=== PATIENT | female | born 1955 | race American Indian/Alaskan Native ===

== ENCOUNTER 2016-11-18 16:43 | Emergency (ER) | payer SELFPAY ==
[2016-11-18] MEDS ORDERED: APRESOLINE ONE (16:50)
[2016-11-18] MEDS: APRESOLINE IV PRN ×3 (16:51→17:47)
--- NOTE | 2016-11-18 17:35 | Cat Scan Report ---
FINAL REPORT PROCEDURE: CT HEAD/BRAIN WO CON TECHNIQUE: Computerized tomography of the head was performed without contrast material. HISTORY: head pain COMPARISON: No prior studies are available for comparison. FINDINGS: Visualized portions of the paranasal sinuses and mastoid air cells are clear. No calvarial fracture is seen. Acute subarachnoid hemorrhage is seen in the [place] possibly due to ruptured aneurysm. Blood is seen in the 4th ventricle which is effaced and there is mild hydrocephalus. Minimal chronic small vessel ischemic changes are seen. Sulci remain visible. IMPRESSION: Diffuse subarachnoid hemorrhage is seen in the [place] and extending into the foramen magnum with effacement of the 4th ventricle. Mild hydrocephalus is seen. Ruptured aneurysm is the most likely etiology for the appearance. Critical results were discussed with the Kt Weathers at 5:30 p.m. Eastern time on November 18, 2016.
[2016-11-18 17:40] LABS: Basophils % (Auto) 0.8 % (0.0-1.8); Hematocrit 38.4 % (30.3-42.9); Hemoglobin 12.7 gm/dl (10.1-14.3); Mean Corpuscular HGB Conc 33 % (30-34); Mean Corpuscular Hemoglobin 30 pg (28-32); Mean Corpuscular Volume 91 fl (79-97); Platelet Count 212 K/mm3 (140-440); Red Blood Count 4.22 M/mm3 (3.65-5.03); Red Cell Distribution Width 14.1 % (13.2-15.2); White Blood Count 10.7 K/mm3 (4.5-11.0)
--- NOTE | 2016-11-18 17:46 | Emergency Department Report ---
HPI - General Chief Complaint: Headache Time Seen by Provider: 11/18/16 17:00 - HPI HPI: This is a 61-year-old Afro-[place] female presents to the emergency department by EMS from work with complaint of a severe posterior headache that started around 4 PM this afternoon. She is not taken anything for symptoms prior to presentation. She presents with very elevated blood pressure. The patient says she has not seen a physician as a primary care doctor in about 25 years and therefore has no diagnosed medical conditions and is not on any medications. She denies any slurred speech, vision change, chest pain or any neurological deficits. ED Past Medical Hx - Past Medical History Previous Medical History?: No - Surgical History Past Surgical History?: No - Social History Smoking Status: Current Every Day Smoker Substance Use Type: Alcohol - Medications Home Medications: Home Medications Medication Instructions Recorded Confirmed Last Taken Type No Known Home Medications [No 11/18/16 11/18/16 Unknown History Reported Home Medications] ED Review of Systems ROS: Stated complaint: HIGH BLOOD PRESSURE Other details as noted in HPI Comment: All other systems reviewed and negative Constitutional: denies: chills, fever Eyes: denies: eye pain, eye discharge, vision change ENT: denies: ear pain, throat pain Respiratory: denies: cough, shortness of breath, wheezing Cardiovascular: denies: chest pain, palpitations Gastrointestinal: denies: abdominal pain, nausea, diarrhea Genitourinary: denies: urgency, dysuria, discharge Musculoskeletal: denies: back pain, joint swelling, arthralgia Skin: denies: rash, lesions Neurological: headache. denies: weakness, numbness Physical Exam - Physical Exam Vital Signs: Vital Signs 11/18/16 11/18/16 11/18/16 16:45 16:50 16:51 Temperature 98 F Pulse Rate 71 69 68 Respiratory 29 H 31 H Rate Blood Pressure 212/96 Blood Pressure 204/97 [Left] O2 Sat by Pulse 100 Oximetry 11/18/16 11/18/16 11/18/16 17:07 17:15 17:16 Temperature Pulse Rate 67 Respiratory 20 Rate Blood Pressure 191/85 191/85 Blood Pressure [Left] O2 Sat by Pulse 98 100 Oximetry Physical Exam: GENERAL: The patient is well-developed well-nourished. HEENT: Normocephalic. Atraumatic. Extraocular motions are intact. Patient has moist mucous membranes. Pupils equal reactive to light bilaterally. NECK: Supple. Trachea is midline. CHEST/LUNGS: Clear to auscultation. There is no respiratory distress noted. HEART/CARDIOVASCULAR: Regular. There is no tachycardia. There is no gallop rub or murmur. ABDOMEN: Abdomen is soft, nontender. Patient has normal bowel sounds. There is no abdominal distention. SKIN: Skin is warm and dry. NEURO: The patient is awake, alert, and oriented. The patient is cooperative. The patient has no focal neurologic deficits. The patient has normal speech. Cranial nerves II through XII grossly intact. No pronator drift. MUSCULOSKELETAL: There is no tenderness or deformity. There is no limitation range of motion. There is no evidence of acute injury. ED Course Vital Signs 11/18/16 11/18/16 11/18/16 16:45 16:50 16:51 Temperature 98 F Pulse Rate 71 69 68 Respiratory 29 H 31 H Rate Blood Pressure 212/96 Blood Pressure 204/97 [Left] O2 Sat by Pulse 100 Oximetry 11/18/16 11/18/16 11/18/16 17:07 17:15 17:16 Temperature Pulse Rate 67 Respiratory 20 Rate Blood Pressure 191/85 191/85 Blood Pressure [Left] O2 Sat by Pulse 98 100 Oximetry - Consultations Consultation #1: I am contacting [facility] for possible transfer. 11/18/16 17:47 11/18/16 18:38 Patient was accepted by the contracts analyst, Dr. Delacruz. He recommends 500 mg of Keppra IV and a blood pressure less than 150. Helicopter is on its way. ED Medical Decision Making - Lab Data Result diagrams: 11/18/16 17:24 11/18/16 17:24 - EKG Data -: EKG Interpreted by Tn EKG shows normal: sinus rhythm, axis, intervals, QRS complexes, ST-T waves Rate: normal - EKG Data When compared to previous EKG there are: previous EKG unavailable Interpretation: normal EKG - Radiology Data Radiology results: report reviewed CT of the head without contrast shows diffuse subarachnoid hemorrhage seen in the [place] extending into the foramen magnum with effacement of the fourth ventricle. Mild hydrocephalus is seen. Ruptured aneurysm is the most likely etiology. - Medical Decision Making This is a 61-year-old female presents to the emergency department with acute posterior headache that started around 4 PM and presents with some hypertensive urgency. Patient has no past medical history but has not seen a primary care physician for over [address] was done stat of the head and came back showing subarachnoid posterior bleed around the [place] concerning for an aneurysmal rupture and/or bleed. Patient placed on a nicardipine drip for blood pressure control. Patient accepted for transfer to [facility] by Dr. Delacruz. - Differential Diagnosis subarachnoid hemorrhage, migraine, tension headache Critical Care Time: No Critical care attestation.: If time is entered above; I have spent that time in minutes in the direct care of this critically ill patient, excluding procedure time. ED Disposition Clinical Impression: Hypertensive urgency, Subarachnoid hemorrhage Disposition: DC/TX ANOTHER TYPE HEALTHCARE Is pt being admited?: No Condition: Fair Referrals: PRIMARY CAREMD [Primary Care Provider] - 3-5 Days Time of Disposition: 23:11
[2016-11-18] MEDS ORDERED: CARDENE 50 MG in NACL 0.9% 250ML 230 ML IV SCH (18:00)
[2016-11-18 18:05] LABS: BUN/Creatinine Ratio 23.75; Blood Urea Nitrogen 19 mg/dL (7-17); Calcium 9.9 mg/dL (8.4-10.2); Carbon Dioxide 21 mmol/L (22-30); Creatine Kinase 168 units/L (30-135); Glucose 133 mg/dL (65-100)
[2016-11-18 18:06] LABS: Anion Gap 22 mmol/L; Chloride 103.2 mmol/L (98-107); Potassium 3.3 mmol/L (3.6-5.0); Sodium 143 mmol/L (137-145)
[2016-11-18] MEDS ORDERED: NACL 0.9% 1000 ML 1,000 ML ONE (19:00)
[2016-11-18] MEDS ORDERED: KEPPRA 500 MG in D5W 100 ML IV ONE (19:00)
[2016-11-18] MEDS ORDERED: NACL 0.9% 1000 ML 1,000 ML IV ONE (19:01)
[2016-11-18 19:04] VITALS: BP 152/63
[2016-11-18 19:05] LABS: INR 0.98 (0.87-1.13); Partial Thromboplastin Time 22.8 Sec. (24.2-36.6)
== END 2016-11-18 19:20 | disposition other institution (70) ==
LOC: ED 16:43
DX: I60.9 Nontraumatic subarachnoid hemorrhage, unspecified (principal); I16.0 Hypertensive urgency; F17.200 Nicotine dependence, unspecified, uncomplicated
CPT/HCPCS: 36415; 51702; 70450; 80048; 82550; 82553; 84443; 84484; 85025; 85610; 85730; 96361; 96365; 96375; 99285; J0360; J1953; J7030; J7050; 93005; 93010

== ENCOUNTER 2020-08-29 16:21 | Emergency (ER) | payer OTHER ==
--- NOTE | 2020-08-29 17:44 | Event Note ---
ED Screening Note ED Screening Note: blood in stool and change in stool caliber for 6 months has not seen GI doctor went for a routine physical today at [facility] and was advised to report to the ED due to elevated BP she states she was not having symptoms related to BP just presented to [facility] for physical and to evaluate blood in stool no abd pain, no fever, no n/v/d, no headache, no vision changes, no numbness, no weakness +SOB today no fatigue, no generalized weakness PMHx subarachnoid hemorrhage in 2017, has never been on BP medication just takes a daily low dose aspirin This initial assessment/diagnostic orders/clinical plan/treatment(s) is/are subject to change based on patients health status, clinical progression and re- assessment by fellow clinical providers in the ED. Further treatment and workup at subsequent clinical providers discretion. Patient/guardian urged not to elope from the ED as their condition may be serious if not clinically assessed and managed. Initial orders include: HTN urgency protocol
[2020-08-29 18:18] LABS: Basophils # (Auto) 0.1 K/mm3 (0.0-0.1); Basophils % (Auto) 1.2 % (0.0-1.8); Eosinophils # (Auto) 0.4 K/mm3 (0.0-0.4); Eosinophils % (Auto) 4.6 % (0.0-4.3); Hematocrit 34.4 % (30.3-42.9); Hemoglobin 11.3 gm/dl (10.1-14.3); Lymphocytes # (Auto) 1.8 K/mm3 (1.2-5.4); Lymphocytes % (Auto) 22.8 % (13.4-35.0); Mean Corpuscular HGB Conc 33 % (30-34); Mean Corpuscular Volume 91 fl (79-97); Monocytes # (Auto) 0.8 K/mm3 (0.0-0.8); Monocytes % (Auto) 9.8 % (0.0-7.3); Platelet Count 326 K/mm3 (140-440); Red Cell Distribution Width 14.8 % (13.2-15.2)
[2020-08-29 18:32] LABS: Alanine Aminotransferase 10 units/L (7-56); Albumin 4.2 g/dL (3.9-5); BUN/Creatinine Ratio 18; Blood Urea Nitrogen 14 mg/dL (7-17); Calcium 9.4 mg/dL (8.4-10.2); Hemolysis Index 5
[2020-08-29 18:50] LABS: INR 0.9 (0.87-1.13)
[2020-08-29 18:51] LABS: Partial Thromboplastin Time 25.5 Sec. (24.2-36.6)
[2020-08-29 18:57] LABS: Bilirubin,Urine NEG (Negative); Blood,Urine NEG (Negative); Color,Urine Straw (Yellow); Protein,Urine <15 mg/dL mg/dL (Negative); RBC,Urine < 1.0 /HPF (0.0-6.0); Urobilinogen,Urine < 2.0 mg/dL (<2.0)
--- NOTE | 2020-08-29 19:12 | Emergency Department Report ---
ED General Adult HPI - General Chief complaint: High BP Stated complaint: HBP PUI?: No Time Seen by Provider: 08/29/20 17:33 Source: patient Mode of arrival: Ambulatory Limitations: No Limitations - History of Present Illness Initial comments: Patient is a 64-year-old female that presents emergency room with complaints of elevated blood pressure. Patient states she was at [facility] having a routine visit and they found her blood pressure be 206/112 and they sent her here for evaluation. Patient states she went for her routine visit which she has been having blood streaking in her stool. Patient states the blood streaking on her stool has been going on for about 3 to 4 weeks. Patient states she never been told she had high blood pressure. Patient that she was in [place] in 2017 for aneurysm repair and she did not have high blood pressure at that time. Patient denies blurry vision, dizziness, slurred speech or weakness. Patient denies chest pain. Patient states she is having some short of breath and heart palpitations and fluttering. Patient states that started this morning. Patient states her shortness of breath better with rest and worse with exertion. Patient denies fever and chills. Patient denies nausea vomiting. Patient denies chest pain. Patient denies abdominal pain. Patient denies nausea and vomiting. Patient denies recent travel. Patient denies recent international travel. Patient denies exposure to the novel coronavirus. Patient denies sick contacts. Patient denies fever and chills. Patient denies cough. Patient denies diarrhea. Patient denies coming in contact with anybody with symptoms of the novel coronavirus. -: Sudden Consistency: constant Improves with: rest Worsens with: movement Associated Symptoms: shortness of breath. denies: confusion, chest pain, cough, diaphoresis, fever/chills, headaches, loss of appetite, malaise, n ausea/vomiting, rash, seizure, syncope, weakness Treatments Prior to Arrival: other (Primary care physician) - Related Data Previous Rx's Medication Instructions Recorded Last Taken Type Metoprolol Xl [Metoprolol 50 mg PO QDAY 30 Days #30 tablet 08/29/20 Unknown Rx SUCCINATE ER TAB] Allergies Allergy/AdvReac Type Severity Reaction Status Date / Time No Known Allergies Allergy Verified 11/18/16 16:45 ED Review of Systems ROS: Stated complaint: HBP Other details as noted in HPI Constitutional: denies: chills, fever Eyes: denies: eye pain, eye discharge, vision change ENT: denies: ear pain, throat pain Respiratory: shortness of breath. denies: cough, wheezing Cardiovascular: as per HPI, palpitations, dyspnea on exertion. denies: chest pain Endocrine: no symptoms reported Gastrointestinal: as per HPI. denies: abdominal pain, nausea, diarrhea Genitourinary: denies: urgency, dysuria, discharge Musculoskeletal: denies: back pain, joint swelling, arthralgia Skin: denies: rash, lesions Neurological: denies: headache, weakness, paresthesias Psychiatric: denies: anxiety, depression Hematological/Lymphatic: denies: easy bleeding, easy bruising ED Past Medical Hx - Past Medical History Previous Medical History?: No - Surgical History Past Surgical History?: Yes Additional Surgical History: aneurism in the head - Family History Family history: no significant - Social History Smoking Status: Never Smoker Substance Use Type: None - Medications Home Medications: Home Medications Medication Instructions Recorded Confirmed Last Taken Type Metoprolol Xl [Metoprolol 50 mg PO QDAY 30 Days #30 tablet 08/29/20 Unknown Rx SUCCINATE ER TAB] ED Physical Exam - General Limitations: No Limitations ED Course Vital Signs 08/29/20 08/29/20 08/29/20 17:30 19:15 19:31 Temperature 98.4 F Pulse Rate 130 H 92 H 80 Respiratory 18 16 18 Rate Blood Pressure 210/83 208/95 208/95 Blood Pressure [Left] O2 Sat by Pulse 100 100 100 Oximetry 08/29/20 08/29/20 08/29/20 19:33 19:45 20:01 Temperature Pulse Rate 79 81 76 Respiratory 14 16 Rate Blood Pressure 208/95 208/95 208/95 Blood Pressure [Left] O2 Sat by Pulse 99 99 Oximetry 08/29/20 08/29/20 08/29/20 20:15 20:31 20:45 Temperature Pulse Rate 76 Respiratory 17 Rate Blood Pressure 170/105 170/105 170/105 Blood Pressure [Left] O2 Sat by Pulse 100 95 100 Oximetry 08/29/20 08/29/20 21:15 21:35 Temperature Pulse Rate 70 Respiratory 18 Rate Blood Pressure 172/98 Blood Pressure 172/98 [Left] O2 Sat by Pulse 99 99 Oximetry - Reevaluation(s) Reevaluation #1: Patient states she feels much better. Patient states her shortness of breath is resolved. Patient states her palpitations and flutters have resolved. Patient's blood pressure is better. Patient's heart rate is better. I discussed all results and clinical findings with patient. I discussed plan of care with patient. Patient agrees with plan of care. Patient is stable for discharge. Patient will be discharged home. Patient given discharge instructions. Patient voiced understanding of discharge instructions. 08/29/20 20:51 ED Medical Decision Making - Lab Data Result diagrams: 08/29/20 18:06 08/29/20 18:06 - EKG Data -: EKG Interpreted by Me EKG shows normal: sinus rhythm, axis, intervals, ST-T waves Rate: normal - EKG Data Interpretation: other (Left bundle branch block) - Radiology Data Radiology results: report reviewed, image reviewed interpreted by me: Chest x-ray: No pneumonia, no pneumothorax, no foreign body, no osseous findings, no acute findings - Medical Decision Making Patient is a 64-year-old female that presents emergency room for elevated blood pressure, shortness of breath and heart fluttering and palpitation. Patient found to have severely elevated blood pressure. Patient does not have a history of high blood pressure. Patient denied any other secondary symptoms elevated blood pressure. Patient given metoprolol 50 mg and her blood pressure improved. Patient symptoms also resolved. Patient denies shortness of breath and palpitations and heart fluttering prior to discharge. Patient had labs done which were essentially unremarkable. Patient chest x-ray was negative for acute findings. I interpreted the chest x-ray. Patient's EKG was abnormal but no acute findings. Patient found to have a left bundle branch block. Patient is stable for discharge. Patient will be discharged home. - Differential Diagnosis Shortness of breath, palpitations, heart flutter, elevated blood pressure, Critical Care Time: Yes Critical care time in (mins) excluding proc time.: 35 Critical care attestation.: If time is entered above; I have spent that time in minutes in the direct care of this critically ill patient, excluding procedure time. Critical Care Time: 35 minutes ED Disposition Clinical Impression: Hypertensive emergency, SOB (shortness of breath), Fluttering heart, Essential hypertension, Bloody stool, LBBB (left bundle branch block) Disposition: - TO HOME OR SELFCARE Is pt being admited?: No Does the pt Need Aspirin: No Condition: Stable Instructions: Shortness of Breath, Adult, [id number], How to Take Your Blood Pressure, [id number], Form - Blood Pressure Record Sheet, Hypertension, Adult, [id number], Preventing Hypertension, Managing Your Hypertension, Hypertension, Adult, Hypertension (ED) Additional Instructions: Patient to follow-up with primary care in 2 to 3 days. Patient to follow-up with cardiology in 2 to 3 days. Patient to follow-up with carpet floor layer apprentice in 2 to 3 days. Patient to rest. Patient to increase water. Patient to avoid strenuous exercise or heavy lifting until cleared by cardiology. Patient to take Tylenol as needed for pain. Patient to avoid ibuprofen.. Patient to take meds as directed. Patient to return to the ER if condition worsens, changes or new symptoms arise. Patient to monitor blood pressure at home. Patient to keep a blood pressure log. Patient to take blood pressure log to follow-up appointments. Prescriptions: Metoprolol Xl [Metoprolol SUCCINATE ER TAB] 50 mg PO QDAY 30 Days #30 tablet Referrals: PRIMARY MD NICOLASA [Primary Care Provider] - 2-3 Days ABDIFATAH BRIGGS MD [Staff Physician] - 2-3 Days COLLIN COLLIER MD [Staff Physician] - 2-3 Days MYNOR HEADLEY MD [Staff Physician] - 2-3 Days Time of Disposition: 20:57
--- NOTE | 2020-08-29 19:26 | XRay Report ---
CHEST 1 VIEW 08/29/2020 6:18 PM INDICATION / CLINICAL INFORMATION: Elevated blood pressure. COMPARISON: None available. FINDINGS: SUPPORT DEVICES: None. HEART / MEDIASTINUM: Cardiac silhouette is upper normal size. LUNGS / PLEURA: No significant pulmonary or pleural abnormality. No pneumothorax. ADDITIONAL FINDINGS: No significant additional findings. IMPRESSION: 1. No acute findings. Signer Name: Marta Cat MD Signed: 08/29/2020 7:21 PM Workstation Name: [id number]
[2020-08-29] MEDS ORDERED: METOPROLOL TARTRATE 50 MG TAB PO ONE (19:31)
[2020-08-29 20:15] LABS: Creatine Kinase MB 2.8 ng/mL (0.0-4.0)
[2020-08-29 21:42] VITALS: BP 172/98
== END 2020-08-29 21:45 | disposition home or self-care (01) ==
LOC: ED 16:21
DX: I44.7 Left bundle-branch block, unspecified (principal); I49.8 Other specified cardiac arrhythmias; K92.1 Melena; R06.02 Shortness of breath; Z79.899 Other long term (current) drug therapy; Z98.890 Other specified postprocedural states
CPT/HCPCS: 36415; 71045; 80053; 81001; 82550; 82553; 83690; 83880; 84484; 85025; 85610; 85730; 93005